=== PATIENT | male | born 1980 ===

== ENCOUNTER 2018-11-25 12:28 | Emergency (ER) | payer MEDICAID ==
[2018-11-25 12:41] VITALS: RESP 18
--- NOTE | 2018-11-25 13:09 | C.PDOC ---
History Of Present Illness Patient reports that he was sent here from [facility] for "hearing voices". He states "I guess they heard me arguing with myself or something". Denies auditory hallucinations. Also denies SI/HI. He does have a history of depression for which he takes and is compliant with Zoloft. Has no further complaints. Calm and cooperative. Time Seen by Provider: 11/25/18 12:48 Chief Complaint (Nursing): Psychiatric Evaluation Past Medical History Reviewed: Historical Data, Nursing Documentation, Vital Signs Vital Signs: Last Vital Signs Temp 98.2 F 11/25/18 12:36 Pulse 86 11/25/18 12:36 Resp 18 11/25/18 12:36 BP 128/78 11/25/18 12:36 Pulse Ox 96 11/25/18 12:36 - Medical History PMH: Depression Family History: States: Unknown Family Hx - Social History Hx Alcohol Use: No Hx Substance Use: Yes - Immunization History Hx Tetanus Toxoid Vaccination: Yes Hx Influenza Vaccination: Yes Hx Pneumococcal Vaccination: No Review Of Systems Except As Marked, All Systems Reviewed And Found Negative. Constitutional: Negative for: Fever, Chills Cardiovascular: Negative for: Chest Pain Respiratory: Negative for: Cough, Shortness of Breath Gastrointestinal: Negative for: Nausea, Vomiting Neurological: Negative for: Weakness, Numbness Psych: Positive for: Depression. Negative for: Suicidal ideation Physical Exam - Physical Exam Appears: Well, Non-toxic, No Acute Distress Skin: Normal Color, Warm, Dry Head: Atraumatic Eye(s): bilateral: Normal Inspection Oral Mucosa: Moist Chest: Symmetrical Cardiovascular: Rhythm Regular Respiratory: Normal Breath Sounds Gastrointestinal/Abdominal: Normal Exam Extremity: Normal ROM Neurological/Psych: Oriented x3, Normal Speech Gait: Steady ED Course And Treatment O2 Sat by Pulse Oximetry: 96 Medical Decision Making Medical Decision Making: Patient with no SI/HI, denies hearing voices. Crisis also briefly saw patient, no need for further psych eval at this time. Disposition - Disposition Disposition Time: 13:09 Condition: STABLE Additional Instructions: ELEANOR WALDROP, thank you for letting us take care of you today. Your provider was Negar Shrestha MD and you were treated for PSYCH EVAL. The emergency medical care you received today was directed at your acute symptoms. If you were prescribed any medication, please fill it and take as directed. It may take several days for your symptoms to resolve. Return to the Emergency Department if your symptoms worsen, do not improve, or if you have any other problems. Please contact your doctor or call one of the physicians/clinics you have been referred to that are listed on the Patient Visit Information form that is includ ed in your discharge packet. Bring any paperwork you were given at discharge with you along with any medications you are taking to your follow up visit. Our treatment cannot replace ongoing medical care by a primary care provider outside of the emergency department. Thank you for allowing the [facility] team to be part of your care today. If you had an X-Ray or CT scan: A Radiologist will review the ED reading if any change in treatment is needed we will contact you. If you had a blood, urine, or wound culture: It will take several days for the results, if any change in treatment is needed we will contact you. If you had an STI test: It will take 48 hours for the results. Please call after 1 week if you have not heard back. - Clinical Impression Clinical Impression: Hearing voices
[2018-11-25 13:24] VITALS: BP 115/76; PULSE 85; TEMP 98.5; O2SAT 100
== END 2018-11-25 13:18 | disposition home or self-care (01) ==
LOC: C.ER 12:28
DX: R44.0 Auditory hallucinations (principal); F32.9 Major depressive disorder, single episode, unspecified